=== PATIENT | male | born 1990 | race Two or more races ===

== ENCOUNTER 2024-05-02 15:57 | Emergency (ER) | payer OTHER ==
[~2024-05-02] VITALS: Ht 172.7 cm; Wt 99.8 kg
[2024-05-02 16:50] LABS: BASOPHILS # (AUTO) 0.1 K/uL (0.0-0.2); BASOPHILS % (AUTO) 0.8 % (0.0-2.0); EOSINOPHILS # (AUTO) 0.2 K/uL (0.0-0.7); EOSINOPHILS % (AUTO) 2.4 % (0.0-6.0); HEMATOCRIT 43 % (39-51); LYMPHOCYTES # (AUTO) 1.5 K/uL (0.8-4.8); LYMPHOCYTES % (AUTO) 20.8 % (20.0-44.0); MEAN CORPUSCULAR HEMOGLOBIN 31 PG (26.0-33.0); MEAN CORPUSCULAR HGB CONC 35 g/dl (31.0-36.0); MEAN CORPUSCULAR VOLUME 88 fL (80-96); MONOCYTES # (AUTO) 0.5 K/uL (0.1-1.30); NEUTROPHILS # (AUTO) 4.8 K/uL (1.8-8.9); PLATELET COUNT (AUTO) 110 K/uL (150-450); RED BLOOD CELL COUNT(AUTO) 4.91 MIL/uL (4.5-6.0)
[2024-05-02 17:03] LABS: CALCIUM, SERUM 8.4 mg/dL (8.5-10.1); CREATININE 1.1 mg/dL (0.6-1.3); POTASSIUM 4.1 mmol/L (3.5-5.1)
[2024-05-02 18:07] VITALS: BP 129/91; TEMP 98.2; O2SAT 99
[2024-05-02] MEDS ORDERED: ENOXAPARIN SODIUM 100 MG/ML DISP.SYRIN SQ ONE (18:24)
[2024-05-02] MEDS: ENOXAPARIN SODIUM 100 MG/ML DISP.SYRIN SQ ONE (18:28)
[2024-05-02 19:01] LABS: INR 0.99 (0.91-1.10); PROTHROMBIN TIME 10.5 SECS (9.2-11.1)
[2024-05-02 19:02] LABS: PARTIAL THROMBOPLASTIN TIME 60.8 SEC (24.3-34.3)
[2024-05-04] MEDS ORDERED: RIVA15TA PO (08:08)
[2024-05-04] MEDS ORDERED: RIVA10TA PO (08:08)
== END 2024-05-02 18:39 | disposition left against medical advice (07) ==
LOC: ER 16:02
DX: I82.431 Acute embolism and thrombosis of right popliteal vein (principal); F17.200 Nicotine dependence, unspecified, uncomplicated
CPT/HCPCS: 99285; 93971; 71045; 96372; 93005; 85025; 80048; 85378; 36415; 85730; 83880; J1650

== ENCOUNTER 2024-05-03 14:08 | Inpatient (IN) | payer OTHER ==
[~2024-05-03] VITALS: Ht 172.7 cm; Wt 97.1 kg
[2024-05-03 08:30] VITALS: BP 107/77; TEMP 98.4; O2SAT 97
[2024-05-03 14:54] LABS: BASOPHILS % (AUTO) 0.7 % (0.0-2.0); EOSINOPHILS # (AUTO) 0.1 K/uL (0.0-0.7); EOSINOPHILS % (AUTO) 2.7 % (0.0-6.0); HEMATOCRIT 44 % (39-51); HEMOGLOBIN 15.2 g/dL (13.5-17.5); LYMPHOCYTES # (AUTO) 1.2 K/uL (0.8-4.8); LYMPHOCYTES % (AUTO) 24.5 % (20.0-44.0); MEAN CORPUSCULAR HEMOGLOBIN 30 PG (26.0-33.0); MEAN CORPUSCULAR HGB CONC 35 g/dl (31.0-36.0); MEAN CORPUSCULAR VOLUME 88 fL (80-96); MONOCYTES # (AUTO) 0.4 K/uL (0.1-1.30); MONOCYTES % (AUTO) 8.1 % (2.0-12.0); NEUTROPHILS # (AUTO) 3.1 K/uL (1.8-8.9); PLATELET COUNT (AUTO) 122 K/uL (150-450); RED CELL DISTRIBUTION WIDTH 13.9 % (11.5-15.0); WHITE BLOOD COUNT (AUTO) 4.9 K/uL (4.3-11.0)
[2024-05-03 15:01] LABS: CALCIUM, SERUM 8.9 mg/dL (8.5-10.1); CREATININE 1.2 mg/dL (0.6-1.3); POTASSIUM 4.3 mmol/L (3.5-5.1)
[2024-05-03] MEDS: ENOXAPARIN SODIUM 100 MG/ML DISP.SYRIN SQ ONE (15:07)
[2024-05-03 15:08] LABS: ALBUMIN 3.2 g/dL (3.4-5.0); BILIRUBIN,DIRECT 0.1 mg/dL (0.0-0.2); BILIRUBIN,TOTAL 0.5 mg/dL (0.2-1.0); TOTAL PROTEIN, SERUM 7.2 g/dL (6.4-8.2)
[2024-05-03 15:16] LABS: INR 1.01 (0.91-1.10); PARTIAL THROMBOPLASTIN TIME 66.1 SEC (24.3-34.3); PROTHROMBIN TIME 10.7 SECS (9.2-11.1)
[2024-05-03 16:00] VITALS: BP 95/75; TEMP 98.4; O2SAT 98
[2024-05-03 16:24] VITALS: O2SAT 99
[2024-05-03] MEDS ORDERED: ONDANSETRON HCL/PF 4 MG/2 ML VIAL IVP PRN (17:30)
[2024-05-03] MEDS ORDERED: Z GUARD REMEDY 4 OZ OINT TP PRN (17:30)
[2024-05-03] MEDS ORDERED: MAGNESIUM HYDROXIDE 30 ML UDC PO PRN (17:30)
[2024-05-03] MEDS ORDERED: MAG HYDROX/AL HYDROX/SIMETH 30 ML UDC PO PRN (17:30)
[2024-05-03] MEDS ORDERED: ZOLPIDEM TARTRATE 5 MG TABLET PO PRN (17:30)
[2024-05-03] MEDS: NICOTINE PATCH (21MG) 21 MG PATCH.TD24 TD SCH (17:42)
[2024-05-03 18:29] LABS: INR 1.03 (0.91-1.10); PROTHROMBIN TIME 10.9 SECS (9.2-11.1)
[2024-05-03 18:49] LABS: PARTIAL THROMBOPLASTIN TIME 83.4 SEC (24.3-34.3)
[2024-05-04] MEDS: ACETAMINOPHEN 325 MG TABLET PO PRN (00:25)
[2024-05-04] MEDS: ENOXAPARIN SODIUM 100 MG/ML DISP.SYRIN SQ SCH (03:54)
[2024-05-04 06:51] LABS: BASOPHILS % (AUTO) 0.6 % (0.0-2.0); EOSINOPHILS # (AUTO) 0.1 K/uL (0.0-0.7); EOSINOPHILS % (AUTO) 2.4 % (0.0-6.0); HEMATOCRIT 41 % (39-51); HEMOGLOBIN 14.1 g/dL (13.5-17.5); LYMPHOCYTES # (AUTO) 1.4 K/uL (0.8-4.8); LYMPHOCYTES % (AUTO) 25.1 % (20.0-44.0); MEAN CORPUSCULAR HEMOGLOBIN 30 PG (26.0-33.0); MEAN CORPUSCULAR HGB CONC 35 g/dl (31.0-36.0); MEAN CORPUSCULAR VOLUME 87 fL (80-96); MONOCYTES # (AUTO) 0.4 K/uL (0.1-1.30); MONOCYTES % (AUTO) 6.5 % (2.0-12.0); NEUTROPHILS # (AUTO) 3.7 K/uL (1.8-8.9); NEUTROPHILS % (AUTO) 65.4 % (43.0-81.0); PLATELET COUNT (AUTO) 114 K/uL (150-450); RED BLOOD CELL COUNT(AUTO) 4.66 MIL/uL (4.5-6.0); RED CELL DISTRIBUTION WIDTH 13.9 % (11.5-15.0); WHITE BLOOD COUNT (AUTO) 5.6 K/uL (4.3-11.0)
[2024-05-04 07:00] VITALS: BP 111/78; TEMP 98.1; O2SAT 96
[2024-05-04 07:31] LABS: CALCIUM, SERUM 8.2 mg/dL (8.5-10.1); CREATININE 1.1 mg/dL (0.6-1.3); MAGNESIUM 1.7 mg/dL (1.8-2.4); PHOSPHORUS 3.1 mg/dL (2.5-4.9); POTASSIUM 3.8 mmol/L (3.5-5.1)
[2024-05-04] MEDS ORDERED: RIVA10TA PO (08:08)
[2024-05-04] MEDS ORDERED: RIVA15TA PO (08:08)
[2024-05-04 09:07] LABS: INR 1.03 (0.91-1.10); PROTHROMBIN TIME 10.9 SECS (9.2-11.1)
[2024-05-04 09:41] LABS: PARTIAL THROMBOPLASTIN TIME 96.8 SEC (24.3-34.3)
[2024-05-04] MEDS: MAGNESIUM OXIDE 400 MG TABLET PO ONE (11:15)
[2024-05-04 16:06] LABS: CALCIUM, SERUM 8.8 mg/dL (8.5-10.1); CREATININE 1.3 mg/dL (0.6-1.3)
[2024-05-04 16:07] LABS: C-REACTIVE PROTEIN 1.72 mg/dL (0.0-0.30)
[2024-05-04 16:57] LABS: RHEUMATOID FACTOR SCREEN NEGATIVE (NEGATIVE)
[2024-05-05 08:09] LABS: HOMOCYSTEINE, PLASMA 19.2 umol/L (0.0-14.5); IMMUNOGLOBULIN A, SERUM 132 mg/dL (90-386); IMMUNOGLOBULIN G, SERUM 813 mg/dL (603-1613); IMMUNOGLOBULIN M, SERUM 99 mg/dL (20-172)
[2024-05-05 11:09] LABS: *ANA ANTI-CENTROMERE B AB <0.2 AI (0.0-0.9); *ANA ANTI-DNA(DS) AB, QN 1 IU/mL (0-9); *ANA ANTI-JO-1 <0.2 AI (0.0-0.9); *ANA ANTICHROMATIN ANTIBODY <0.2 AI (0.0-0.9); *ANA RNP ANTIBODIES <0.2 AI (0.0-0.9); *ANA SJOGREN'S ANTI-SS-A <0.2 AI (0.0-0.9); *ANA SJOGREN'S ANTI-SS-B <0.2 AI (0.0-0.9); *ANAANTI-SCLERODERMA-70 AB <0.2 AI (0.0-0.9); *ANASMITH AB <0.2 AI (0.0-0.9)
[2024-05-05 22:35] LABS: HIV-1 p24 ANTIGEN NON REACTIVE (NONREACTIVE); HIV-1/2 ANTIBODY NON REACTIVE (NONREACTIVE)
[2024-05-07 12:10] LABS: *SPE ALBUMIN 3.4 g/dL (2.9-4.4); *SPE ALPHA-1-GLOBULIN 0.3 g/dL (0.0-0.4); *SPE GLOBULIN, TOTAL 3.3 g/dL (2.2-3.9); *SPE M-SPIKE Not Observed g/dL (Not Observed); *SPE PROTEIN TOTAL 6.7 g/dL (6.0-8.5)
== END 2024-05-04 15:31 | disposition home or self-care (01) | DRG 197 ==
LOC: ER 14:12 → MED 16:10
PROVIDERS: ADMIT Internal Medicine; ATTEND Internal Medicine
DX: I82.431 Acute embolism and thrombosis of right popliteal vein (principal); D69.6 Thrombocytopenia, unspecified; E88.09 Other disorders of plasma-protein metabolism, not elsewhere classified; F17.210 Nicotine dependence, cigarettes, uncomplicated
CPT/HCPCS: 36415; 80048-TC; 80076-TC; 81240; 81241; 82607-TC; 82784; 83090; 83735-TC; 84100-TC; 84155; 84165; 84443-TC; 85025-TC; 85300; 85301; 85303; 85385-TC; 85610-TC; 85613; 85670; 85705; 85730-TC; 85732; 86140-TC; 86147; 86225; 86235; 86334; 86431-TC; 86706; 86803; 86850-TC; 87340; 87806; G0378; J1650